=== PATIENT | male | born 1995 | race African-American/Black ===

== ENCOUNTER 2017-04-11 21:46 | Emergency (ER) | payer SELFPAY ==
[2017-04-11 21:55] VITALS: BMI 21.1
--- NOTE | 2017-04-11 23:40 | DR.GENAD ---
HPI - PCP Primary Care Physician: NFD - HPI Comment HPI Comment: INCREASING PAIN THAT IS WORSE TONIGHT. NO FEVER. SLIGHT DRAINAGE NOTED. - Complaint/Symptoms Chief Complaint Doctors Comments: ABSCESS WITH CELLULITIS IN RIGHT AXILLA AREA TIMES 8 DAYS. Chief Complaint:: ABCESS/CELLULITIS TO RIGHT AXILLARY - Nurses notes reviewed Nurses Notes Review: Yes - Source History Provided: Patient - Mode of Arrival Mode of Arrival: Ambulatory - Timing Onset of Chief Complaint: 04/04/17 Came on: Suddenly - Duration Duration: Constant Duration: Days - Severity Severity: Moderate PMH - PMH Past Medical History: No Past Medical History: Asthma Past Surgical History: No - Family History History of Family Medical Conditions: Yes Family Medical History: Diabetes Mellitus, Hypertension - Social History Does patient currently use any type of tobacco product: Yes Have you used tobacco products in the last 12 months: Yes Type of Tobacco Use: Cigarettes Does any household member use tobacco: Yes Alcohol Use: Occasionally Do you use any recreational Drugs:: No Lives With: Family Lives Where: Home - infectious screening In the last 2 months have you had wt loss of >10#?: NO Have you had fever, night sweats or hemotysis?: No Have you traveled outside the country in the last 6 months?: No Isolation: Standard ROS - Review of Systems Constitutional: No Symptoms Reported Eyes: No Symptoms Reported ENTM: No Symptoms Reported Respiratoy: No Symptoms Reported Cardiovascular: No Symptoms Reported Gastrointestinal/Abdominal: No Symptoms Reported Genitourinary: No Symptoms Reported Neurological: No Symptoms Reported Musculoskeletal: Other (RT AXILLA WITH ABSCESS AND REDNESS. SLIGHT DRAINAGE NOTED ON THE ABSCESS.) Integumentary: Change in Color, Other (ABSCESS RT AXILLA.) Hematologic/Lymphatic: No Symptoms Reported Endocrine: No Symptoms Reported All Other Systems: Reviewed and Negative PE - Vital Signs Vitals: Temperature 98.4 F Pulse Rate [Right] 77 Pulse Rate 71 Respiratory Rate 16 Blood Pressure [Right Arm] 129/74 Blood Pressure 136/89 O2 Sat by Pulse Oximetry 99 - General Limitations: No Limitations General Appearance: Alert - Head Head Exam: Normal Inspection - Eyes Eye exam: Normal Appearance - ENT ENT Exam: Normal External Ear Exam External Ear Exam: Normal External Inspection Nose Exam: Normal Nose Exam Mouth Exam: Normal Inspection Throat Exam: Normal Inspection - Neck Neck Exam: Trachea Midline. negative: Tenderness, Meningismus, Lymphadenopathy - Chest Chest Inspection: Symmetric Chest Wall Rise - Respiratory Respiratory Exam: Normal Lung Sounds Bilat Respiratory Exam: Bilateral Clear to Auscultation - Cardiovascular Cardiovascular Exam: Regular Rate, Normal Rhythm, Normal Heart Sounds - Abdominal Exam Abdominal Exam: Normal Inspection - Extremities Extremities Exam: Tenderness (RIGHT AXILLA WITH ROBINS EGG SIZE ABSCESS/ SLIGHT DRAINAGE PRESENT.) - Back Back Exam: Normal Inspection - Neurologic Neurological Exam: Alert, Oriented X3 - Psychiatric Psychiatric Exam: Anxious - Skin Skin Exam: Erythema MDM - Differential Diagnosis Differential Diagnosis: ABSCESS, CELLULITIS Course - Treatment Treatment: SEE ORDERS. I&D DONE IN ED. - Reevaluation 1st: Improved - Education/Counseling Education/Counseling: Patient, Education Educated On: Treatment, Diagnosis, Needs for Follow Up Procedures - Incision and Drainage Blade Size: 11 I & D Procedure: betadine prep, sterile dressing applied, gauze wick placed Progress: 3CC PUS DRAIN FROM ABSCESS. - Diagnosis Discharge Problem: Abscess Cellulitis Qualifiers: Site of cellulitis: extremity Site of cellulitis of extremity: axilla Laterality: right Qualified Code(s): L03.111 - Cellulitis of right axilla - Discharge Plan Disposition: 01 HOME, SELF-CARE Condition: Stable Prescriptions: Acetaminophen with Codeine [Tylenol/Codeine #3 300-30 mg] 1 tab PO Q6H PRN #15 tab PRN Reason: Pain Ibuprofen [MOTRIN TAB 600 MG *] 600 mg PO TID PRN #20 tab PRN Reason: Pain/Inflammation Sulfamethoxazole-Trimethoprim [BACTRIM DS TAB 800/160 MG *] 1 tab PO BID #20 tab - Follow ups/Referrals Follow ups/Referrals: JAVIER DOMINGO [STAFF PHYSICIAN] - 3 days NFD,None [Primary Care Provider] - 3 days - Instructions Instructions: Abscess, [id number], Cellulitis, Adult, [id number] Additional Instructions: RETURN TO ED IF WORSE.
[2017-04-11] MEDS ORDERED: BACTRIM DS TAB PO ONE ×2 (23:41→23:59)
[2017-04-11] MEDS ORDERED: TYLENOL #3 TAB (W/CODEINE) PO ONE ×2 (23:42→23:59)
[2017-04-11] MEDS ORDERED: MOTRIN TAB 600 MG PO ONE ×2 (23:42→23:59)
[2017-04-12 00:05] VITALS: BP 129/74
== END 2017-04-12 00:05 | disposition home or self-care (01) ==
LOC: ER 22:01
PROC: 0X9 Anatomical Regions, Upper Extremities, Drainage (ICD-10-PCS; principal; 2017-04-11)
DX: L02.411 Cutaneous abscess of right axilla (principal); L03.111 Cellulitis of right axilla
CPT/HCPCS: 87070; 87075; 87077; 87186; 87205; 99282